=== PATIENT | male | born 1960 | race African-American/Black ===

== ENCOUNTER 2023-05-26 15:26 | Emergency (ER) | payer OTHER ==
[2023-05-26] MEDS ORDERED: HYDROcodone/Acetaminophen 10/325 mg Tablet ONE (16:47)
[2023-05-26 18:11] LABS: #Eosinphils 0.1 thou/uL (0.0-0.7); #Neutrophils 4.6 thou/uL (1.40-6.50); %Basophils 0.6 % (0.0-1.0); %Lymphocytes 8.8 % (21.0-51.0); %Monocytes 16.1 % (0.0-10.0); %Neutrophils 72.3 % (42.0-75.0); Hematocrit 38.4 % (42.0-52.0); Hemoglobin 13.4 g/dL (14.0-18.0); Mean Corpuscular HGB CONC 34.9 g/dL (32.0-36.0); Mean Corpuscular Hemoglobin 33.2 pg (27.0-31.0); Mean Platelet Volume 10.2 fL (7.4-10.4); Platelet Count 120 10x3/uL (130-400); RBC Distribution Width 13.1 % (11.5-14.5); Red Blood Cell (RBC) Count 4.04 mill/uL (4.70-6.10); White Blood Cell (WBC) Count 6.4 10x3/uL (4.8-10.8)
[2023-05-26 18:26] LABS: INR-International Normal Ratio 1.3; Prothrombin Time 16.8 sec (12.0-14.7)
[2023-05-26 18:27] LABS: PTT 34.9 sec (22.9-36.1)
[2023-05-26 18:46] LABS: ALT (SGPT) 33 U/L (8-55); AST (SGOT) 73 U/L (5-34); Albumin 2.1 g/dL (3.4-4.8); Alkaline Phosphatase 135 U/L (40-110); Anion Gap 10 mmol/L (10-20); BUN (Urea Nitrogen) 15 mg/dL (8.4-25.7); Bilirubin, Total 1.1 mg/dL (0.2-1.2); Calc. Creatinine Clearance 0 mL/min (70-130); Calcium 8.6 mg/dL (7.8-10.44); Carbon Dioxide 24 mmol/L (23-31); Chloride 100 mmol/L (98-107); Estimated GFR 77; Glucose 94 mg/dL (80-115); Potassium 3.6 mmol/L (3.5-5.1); Protein, Total 9.1 g/dL (5.8-8.1); Sodium 130 mmol/L (136-145)
[2023-05-26] MEDS ORDERED: Albumin 25% 25 GM/100 ML BOT IVPB SCH (19:45)
[2023-05-26 21:08] LABS: Body Fluid Source Paracentesis Fluid; Clarity Cloudy/Turbid (Clear); Tube # EDTA
[2023-05-26 21:34] LABS: RBC Count-Automated (BF) 5820 /cu.mm; WBC/Nucleated-Auto (BF) 44 /cu.mm
[2023-05-26 22:00] LABS: BF Color White
[2023-05-26 23:35] LABS: BF Segmented Neutrophils 13 %; Cell Count Non Hematic 73 %; Lymphocytes 14 %
== END 2023-05-26 21:51 | disposition home or self-care (01) ==
LOC: ERS 15:26
DX: K70.31 Alcoholic cirrhosis of liver with ascites (principal); Z79.899 Other long term (current) drug therapy
CPT/HCPCS: 36415; 49083; 80053; 82945; 83615; 84157; 85025; 85060; 85610; 85730; 87070; 87205; 89051; 96365; P9047

== ENCOUNTER 2024-09-07 20:37 | Inpatient (IN) | payer OTHER ==
[2024-09-07 23:03] VITALS: BMI 16.8
[2024-09-08] MEDS ORDERED: Ondansetron ODT 4 MG TAB PO PRN (00:19)
[2024-09-08] MEDS ORDERED: Ondansetron PF 4 MG/2 ML Vial IVP PRN (00:19)
[2024-09-08] MEDS: Ketorolac Tromethamine 30 MG (1 mL) VIAL IVP PRN (02:04)
[2024-09-08 04:56] LABS: Hematocrit 39.7 % (42.0-52.0); Hemoglobin 13.7 g/dL (14.0-18.0); Mean Corpuscular HGB CONC 34.5 g/dL (32.0-36.0); Mean Corpuscular Volume 101.5 fL (78.0-98.0); Mean Platelet Volume 11.6 fL (7.4-10.4); Platelet Count 119 10x3/uL (130-400); RBC Distribution Width 19.9 % (11.5-14.5); Red Blood Cell (RBC) Count 3.91 mill/uL (4.70-6.10)
[2024-09-08 05:23] LABS: ALT (SGPT) 48 U/L (8-55); AST (SGOT) 61 U/L (5-34); Albumin 1.8 g/dL (3.4-4.8); Alkaline Phosphatase 137 U/L (40-110); Anion Gap 15 mmol/L (10-20); BUN (Urea Nitrogen) 11 mg/dL (8.4-25.7); Calc. Creatinine Clearance 77 mL/min (70-130); Calcium 8.5 mg/dL (7.8-10.44); Carbon Dioxide 15 mmol/L (23-31); Chloride 107 mmol/L (98-107); Estimated GFR 100; Globulin 7.1 g/dL (2.4-3.5); Glucose 113 mg/dL (80-115); Potassium 3.2 mmol/L (3.5-5.1); Protein, Total 8.9 g/dL (5.8-8.1); Sodium 134 mmol/L (136-145)
[2024-09-08 05:32] LABS: Anisocytosis SLIGHT = 6-15 cells HPF (0-5); Band 1 % (5-11); Burr Cells SLIGHT = 2-5 cells HPF (0-1); Eosinophils 2 % (0-10); Lymphocytes 1 % (21-51); Macrocytosis SLIGHT = 6-15 cells HPF (0-5); Metamyelocyte 1 % (0-0); Monocytes 4 % (0-10); Neutrophil 91 % (42-75); Platelet Adequacy Comment Platelets Decreased; Polychromasia SLIGHT = 2-3 cells HPF (0-2)
[2024-09-08] MEDS ORDERED: Acetaminophen 325 MG TAB PO PRN (08:02)
[2024-09-08] MEDS ORDERED: Acetaminophen 325 MG Suppository PR PRN (08:02)
[2024-09-08 09:08] VITALS: TEMP 97.6
[2024-09-08] MEDS: Potassium Chloride 20 MEQ in Premix 1 BAG IVPB SCH (09:10)
[2024-09-08] MEDS: Rifaximin 550 MG TAB PO SCH (09:10)
[2024-09-08] MEDS: Famotidine/PF 20 mg/2ml Vial SLOW IVP SCH (09:10)
[2024-09-08] MEDS: Lactated Ringer's 500 ML IV SCH (09:14)
[2024-09-08] MEDS: Lactulose 20 GM (30 mL) UDCUP PR SCH (12:39)
[2024-09-08 15:49] VITALS: BMI 16.8
[2024-09-08 17:35] VITALS: BP 174/93
== END 2024-09-08 19:15 | disposition hospice, home (50) | DRG 442 ==
LOC: 2NO 22:45 → OBSVTOIN 09-08 00:19
PROVIDERS: ADMIT Family Medicine; ATTEND Internal Medicine
DX: K76.82 Hepatic encephalopathy (principal); E87.1 Hypo-osmolality and hyponatremia; K56.609 Unspecified intestinal obstruction, unspecified as to partial versus complete obstruction; K70.31 Alcoholic cirrhosis of liver with ascites; K72.10 Chronic hepatic failure without coma; Z98.890 Other specified postprocedural states; D64.9 Anemia, unspecified; D69.6 Thrombocytopenia, unspecified; E87.6 Hypokalemia; Z79.899 Other long term (current) drug therapy; Z51.5 Encounter for palliative care; K59.00 Constipation, unspecified; Z66 Do not resuscitate
CPT/HCPCS: 36415; 36416; 71045; 74177; 80053; 81001; 82140; 83605; 83690; 83735; 83880; 84484; 85025; 85610; 85730; 87040; 93005; 96365; 96366; 96375; J1885; J2543; J3010; J3370; J3480; J3490; J7120